=== PATIENT | female | born 1955 | race Asian ===

== ENCOUNTER 2017-11-06 11:42 | Day surgery (SDC) | payer OTHER ==
[~2017-11-06] VITALS: Ht 154.9 cm; Wt 62.6 kg
[2017-11-06 13:07] VITALS: Ht 154.9 cm; Wt 62.6 kg
[2017-11-06] MEDS ORDERED: AMLO-147 PO (13:10)
[2017-11-06] MEDS ORDERED: PREVACID (13:10)
[2017-11-06 14:10] VITALS: BP 138/82; PULSE 78; RESP 12
[2017-11-06] MEDS ORDERED: PROPOFOL 60 ML ONE (14:18)
[2017-11-06] MEDS ORDERED: LIDOCAINE 2% (SDV) 5 ML INJ ONE (14:18)
--- NOTE | 2017-11-06 14:53 | OPPN ---
Date/Time of Note Date/Time of Note DATE: 11/06/17 TIME: 14:47 Proc Note GI Procedure Date 11/06/17 Indication: other (Dyspepsia) Pre-procedure Diagnosis Dyspepsia Post-procedure Diagnosis Impression: Moderate distal esophagitis. Rule out Mabry's esophagus. Biopsies obtained Small hiatal hernia Moderate gastritis. Rule out H. pylori infection. Biopsies obtained Otherwise normal EGD Plan: PPI therapy Review pathology Follow-up as previously scheduled . Procedure Performed: Endoscopy (Plus biopsies) Surgeon JESSICA AGARWAL MD See signature line Quality Improvement Coordinator none Anesthesia Type: MAC Anesthesiologist: RUDY LINN MD Tourniquet Time none EBL none Transfusion required none Biopsy 1: Gastric body and antrum Biopsy 2: Distal esophagus Grafts/Implants none Tubes/Drains none Complication(s) none Procedure Description After informed consent, with the patient/relatives understanding the procedure, its indications, potential risks and complications, including but not limited to : allergic reaction, bleeding, perforation or infection, and after all pertinent questions were answered to the patients satisfaction, the patient/ relatives signed witnessed informed consent. Following this, premedication was administered slowly IV push under careful cardiovascular and respiratory monitoring with pulse oximetry, automatic blood pressure, and hospital monitor. Once the sedative effect was achieved the patient was place in the left lateral decubitus, the panendoscope was introduced and advanced under visual control. Careful examination of the upper gastrointestinal tract, both on insertion as well as withdrawal of the instrument disclosing the following findings: ESOPHAGUS: the mucosa of the entire esophagus was carefully examined and showed the following findings: There is moderate erythema and edema the mucosa of the distal esophagus. Biopsies were obtained to rule out Mabry's esophagus. Otherwise the mucosa appears within normal limits. There is no evidence of varices, neoplasm, or stricture. Small Hiatal Hernia identified. STOMACH: Upon entrance to the stomach air was insufflated, the gastric reid distended normally. The mucosa of the fundus, body and antrum of the stomach was carefully examined both head-on and on retroflexion, and showed the following findings: There is moderate erythema and edema of the antrum. Biopsies obtained to rule out H. pylori infection. Otherwise the mucosa appears within normal limits with no abnormalities. There is no evidence of ulcers or neoplasm. PYLORUS: The pylorus was carefully examined and showed the following findings: the pylorus appears patent and within normal limits, with no evidence of gastric outlet obstruction. DUODENUM: The duodenal mucosa was carefully examined in the duodenal bulb as well as the second portion of the duodenum and showed the following findings: the mucosa appears unremarkable with no evidence of duodenitis, ulcer or neoplasm. Copies To: CC: JESSICA AGARWAL MD, MORDO MD Nov 06, 2017 14:53
--- NOTE | 2017-11-06 14:58 | OPPN ---
Date/Time of Note Date/Time of Note DATE: 11/06/17 TIME: 14:54 Proc Note GI Procedure Date 11/06/17 Indication: other (CRC screening) Pre-procedure Diagnosis CRC screening History of colon polyps Post-procedure Diagnosis Impression: Questionable proctitis. Biopsies obtained Mild diverticulosis left colon. Otherwise normal colonoscopy to cecum Previous history of colon polyps Plan: Follow up as scheduled] High fiber diet Annual hemoccult stool testing [Review pathology] [Surveillance colonoscopy in 5 years] . Procedure Performed: Colonoscopy (+ biopsies) Surgeon see signature line Cash Surrender Calculator none Anesthesia Type: MAC Anesthesiologist: RUDY LINN MD Tourniquet Time none EBL none Transfusion required none Biopsy 1: Rectum Grafts/Implants none Tubes/Drains none Complication(s) none Disposition: home Procedure Description After informed consent, with the patient/relatives understanding the procedure, its indications and potential risks and complications, including but not limited to: Allergic reaction, bleeding, perforation, infection, and after all pertinent questions were answered to the patient's satisfaction, the patient/ relatives signed the witnessed informed consent. Following this, premedication was administered slowly IV push under careful cardiovascular and respiratory monitoring with pulse OXIMETRY, automatic blood pressure, and family psychologist. Once the sedative effect was achieved, the patient was placed in the left lateral decubitus position, digital rectal examination was performed. The colonoscope was then introduced and advanced under visual control throughout all segments of the colon including: the rectum, sigmoid, descending colon, splenic flexure, transverse colon, hepatic flexure, ascending colon and finally reaching the cecum which was clearly identified by transillumination, finger indentation and the ileocecal valve. Careful examination of the mucosa of the lower gastrointestinal tract both on insertion as well as withdrawal of the instrument disclosed the following findings: PREPARATION QUALITY: [Adequate], RECTAL EXAM: The anorectal area was visualized examined and digital rectal examination performed with the following findings: No evidence of perirectal disease, no masses. COLONIC MUCOSA: The mucosa of all segments of the colon was carefully examined and showed the following findings: There is moderate erythema edema and submucosal hemorrhagic changes in the rectum. Biopsies were obtained to rule out proctitis versus preparation artifact. There is mild diverticulosis left side of the colon. Moderate-sized internal hemorrhoids are present. Otherwise the examined mucosa appears within normal limits. There is no evidence of inflammatory changes, polyps or neoplasms , vascular malformation, or any other abnormality. The instrument was then withdrawn, the patient tolerated the procedure well and was transferred out of the Endoscopy Suite awake and in good condition to continue recovery under observation. Copies To: CC: JESSICA AGARWAL MD, MORDO MD Nov 06, 2017 14:57
[2017-11-06 15:31] VITALS: BP 126/73; PULSE 74; RESP 24
== END 2017-11-06 19:43 | disposition home or self-care (01) ==
LOC: GIL 11:42
PROVIDERS: ATTEND Internal Medicine Gastroenterology
DX: Z12.11 Encounter for screening for malignant neoplasm of colon (principal); K29.50 Unspecified chronic gastritis without bleeding; Z86.010 Personal history of colon polyps; K44.9 Diaphragmatic hernia without obstruction or gangrene; I10 Essential (primary) hypertension; E78.5 Hyperlipidemia, unspecified
CPT/HCPCS: 43239; 45378; 88305; 88312; 88313; Z7610